=== PATIENT | male | born 1970 | race Two or more races ===

== ENCOUNTER 2018-07-16 22:22 | Inpatient (IN) | payer OTHER ==
[~2018-07-16] VITALS: Ht 165.1 cm; Wt 88.6 kg
[2018-07-16] MEDS ORDERED: OLANZAPINE 10 MG/VIAL IM STA (23:00)
[2018-07-16] MEDS ORDERED: ONDANSETRON HCL 4MG/2ML INJ IV STA (23:00)
[2018-07-16] MEDS ORDERED: SODIUM CHLORIDE 0.9% 1,000 ML IV ONE (23:00)
[2018-07-17] VITALS (38 sets, daily range): BP systolic 83–148; BP diastolic 48–92
[2018-07-17 00:17] LABS: BASOPHILS % 1.2 % (0.0-2.0); EOSINOPHILS % 0.3 % (0.0-5.0); HEMATOCRIT. 33.8 % (42.0-52.0); HEMOGLOBIN. 11.7 g/dL (14.0-18.0); LYMPHOCYTES % 8.2 % (20.0-50.0); MEAN CORPUSCULAR HEMOGLOBIN 35.4 pg (28.0-32.0); MEAN CORPUSCULAR VOLUME 102.3 fL (80.0-94.0); MEAN PLATELET VOLUME 7.3 fl (7.4-10.4); MONOCYTES % 13.7 % (2.0-8.0); NEUTROPHILS % 76.6 % (40.0-76.0); RED CELL DISTRIBUTION WIDTH 14.7 % (11.6-14.6)
[2018-07-17 00:26] LABS: CHLORIDE 103 mEq/L (98-107)
[2018-07-17] MEDS ORDERED: AZITHROMYCIN 500 MG in DEXT 5% WATER 250 ML IV ONE (00:30)
[2018-07-17] MEDS ORDERED: CEFTRIAXONE 1 G PREMIX 50 ML IV ONE (00:30)
[2018-07-17 00:32] LABS: PLATELET 47 x1000/uL (130-400)
[2018-07-17 00:56] LABS: BG BASE EXCESS 2.7 mmol/L (-2.0-2.0); BG CARBOXYHEMOGLOBIN 1.5 % (0.5-1.5); BG DEOXYHEMOGLOBIN 7.9 % (0.0-5.0); BG FRACTION INSPIRED OXYGEN 28; BG HCO3 ACT 23.5 mmol/L (22.0-26.0); BG METHEMOGLOBIN 0.4 % (0.0-1.5); BG OXYGEN SATURATION 91.9 % (92.0-98.5); BG OXYHEMOGLOBIN 90.2 % (94.0-97.0); BG PCO2 26.8 mmHg (35.0-45.0); BG PO2 62.4 mmHg (75.0-100.0); BG SAMPLE SITE RIGHT RADIAL; BG TOTAL HEMOGLOBIN 15.3 g/dL (12.0-18.0); BG VENT MODE NASAL CANNULA
[2018-07-17] MEDS ORDERED: IOHEXOL-300 100 ML BOTTLE ONE (03:16)
[2018-07-17 03:32] LABS: *BARBITURATES SCREEN URINE NEGATIVE (NEGATIVE); *BENZODIAZEPINES SCREEN URINE NEGATIVE (NEGATIVE)
[2018-07-17 03:33] LABS: *AMPHETAMINES SCREEN URINE NEGATIVE (NEGATIVE); *COCAINE SCREEN URINE NEGATIVE (NEGATIVE); CANNABINOID URINE SCREEN NEGATIVE (NEGATIVE); METHADONE URINE SCREEN NEGATIVE (NEGATIVE); OPIATES URINE SCREEN NEGATIVE (NEGATIVE); PHENCYCLIDINE URINE SCREEN NEGATIVE (NEGATIVE)
[2018-07-17] MEDS ORDERED: CLONIDINE 0.1MG TABLET PO PRN (05:45)
[2018-07-17] MEDS ORDERED: DOCUSATE SODIUM 100MG CAPSULE PO PRN (05:45)
[2018-07-17] MEDS ORDERED: GUAIFENESIN 200MG/10ML SUGAR FREE UDC PO PRN (05:45)
[2018-07-17] MEDS ORDERED: MAGNESIUM/ALUMINUM HYDROXIDE/SIMETHICONE 30ML UDC PO PRN (05:45)
[2018-07-17] MEDS ORDERED: DIPHENHYDRAMINE 50MG/ML VIAL IV PRN (05:45)
[2018-07-17] MEDS ORDERED: ONDANSETRON HCL 4MG/2ML INJ IV PRN (05:45)
[2018-07-17] MEDS ORDERED: NA PHOS,M-B/NA PHOS,DI-BA ENEMA 118ML PR PRN (05:45)
[2018-07-17] MEDS ORDERED: HYDROCODONE/ACETAMINOPHEN 5/325MG TABLET PO PRN (05:45)
[2018-07-17] MEDS ORDERED: LORAZEPAM 2MG/ML CPJ IV PRN (05:45)
[2018-07-17 06:54] LABS: CHLORIDE 102 mEq/L (98-107)
[2018-07-17 07:17] LABS: PLATELET ESTIMATE DECREASED
[2018-07-17 08:30] LABS: T4 FREE 1.86 ng/dL (0.76-1.46)
[2018-07-17] MEDS ORDERED: ASPIRIN 81MG EC TABLET PO SCH (10:00)
[2018-07-17] MEDS ORDERED: POTASSIUM CHLORIDE 20MEQ TABLET SR PO SCH (12:30)
[2018-07-17] MEDS ORDERED: MORPHINE SULFATE 4 MG/ML CPJ (NOT FOR IM USE) IV PRN (13:57)
[2018-07-17] MEDS: FOLIC ACID 1MG TABLET PO SCH (16:16)
[2018-07-17] MEDS: MULTIVITAMINS,THER W-MINERALS TABLET PO SCH (16:17)
[2018-07-17] MEDS: THIAMINE HCL 100MG TABLET PO SCH (16:17)
[2018-07-17] MEDS: ACETAMINOPHEN 325MG TABLET PO PRN (16:17)
[2018-07-17 16:36] LABS: INR 1.4; PARTIAL THROMBOPLASTIN TIME 31.5 sec (23.4-31.0); PROTHROMBIN TIME 14.2 sec (9.1-11.1)
[2018-07-17 16:46] LABS: CREATINE KINASE MB FRACTION 3.4 ng/mL (0.5-3.6)
[2018-07-17] MEDS ORDERED: PIPERACILLIN/TAZ 3.375G PREMIX 50 ML IV SCH (18:45)
[2018-07-17] MEDS: SODIUM CHLORIDE 0.45% 1,000 ML IV SCH (18:53)
[2018-07-17] MEDS: PIPERACILLIN/TAZ 3.375G PREMIX 50 ML IV SCH (20:51)
[2018-07-17] MEDS: CHLORDIAZEPOXIDE 5 MG CAPSULE PO SCH (21:51)
[2018-07-18] VITALS (93 sets, daily range): BP systolic 61–171; BP diastolic 36–95
[2018-07-18 00:10] LABS: CREATINE KINASE MB FRACTION 2.8 ng/mL (0.5-3.6)
[2018-07-18] MEDS ORDERED: LORAZEPAM 2MG/ML CPJ ONE ×2 (01:12→01:13)
[2018-07-18] MEDS ORDERED: LORAZEPAM 2MG/ML CPJ IV SCH (01:15)
[2018-07-18] MEDS: LORAZEPAM 2MG/ML CPJ IV SCH ×2 (01:35→01:49)
[2018-07-18] MEDS: PROPOFOL 10MG/ML 100ML 100 ML IV PRN ×7 (02:21→20:10)
[2018-07-18 02:43] LABS: BG BASE EXCESS -5.5 mmol/L (-2.0-2.0); BG CARBOXYHEMOGLOBIN 0.7 % (0.5-1.5); BG DEOXYHEMOGLOBIN 13.1 % (0.0-5.0); BG FRACTION INSPIRED OXYGEN 100; BG HCO3 ACT 22.3 mmol/L (22.0-26.0); BG METHEMOGLOBIN 0.4 % (0.0-1.5); BG OXYGEN SATURATION 86.8 % (92.0-98.5); BG OXYHEMOGLOBIN 85.8 % (94.0-97.0); BG PH 7.241 (7.350-7.450); BG PO2 67.1 mmHg (75.0-100.0); BG SAMPLE SITE RIGHT RADIAL; BG TIDAL VOLUME(mL) 450 mL; BG TOTAL HEMOGLOBIN 13.1 g/dL (12.0-18.0); BG VENT MODE VENT - A/C; BG VENT RATE 14 set
[2018-07-18] MEDS: LEVETIRACETAM 1,000 MG in SODIUM CHLORIDE 0.9% 100 ML IV SCH ×3 (02:58→22:32)
[2018-07-18] MEDS: PIPERACILLIN/TAZ 3.375G PREMIX 50 ML IV SCH ×4 (02:58→22:35)
[2018-07-18] MEDS ORDERED: SODIUM CHLORIDE 0.9% 500 ML IV ONE ×2 (03:15→04:15)
[2018-07-18] MEDS ORDERED: PHENYLEPHRINE 40 MG in DEXT 5% WATER 496 ML IV SCH (03:45)
[2018-07-18 07:10] LABS: CHLORIDE 105 mEq/L (98-107)
[2018-07-18 07:12] LABS: BASOPHILS % 0.9 % (0.0-2.0); HEMATOCRIT. 33.5 % (42.0-52.0); HEMOGLOBIN. 11.4 g/dL (14.0-18.0); LYMPHOCYTES % 10.8 % (20.0-50.0); MEAN CORPUSCULAR HEMOGLOBIN 35.5 pg (28.0-32.0); MEAN CORPUSCULAR VOLUME 103.9 fL (80.0-94.0); MEAN PLATELET VOLUME 8.5 fl (7.4-10.4); MONOCYTES % 11.1 % (2.0-8.0); NEUTROPHILS % 76.2 % (40.0-76.0); PLATELET 78 x1000/uL (130-400); RED BLOOD CELL COUNT 3.22 mill/uL (4.7-6.1); RED CELL DISTRIBUTION WIDTH 14.8 % (11.6-14.6)
[2018-07-18 07:19] LABS: LDL CHOLESTEROL 87 mg/dL (5-100)
[2018-07-18 07:21] LABS: CREATINE KINASE 572 IU/L (39-308); HDL CHOLESTEROL 13 mg/dL (40-59)
[2018-07-18 07:23] LABS: CREATINE KINASE MB FRACTION 4.8 ng/mL (0.5-3.6)
[2018-07-18] MEDS ORDERED: LIDOCAINE HCL 1% 20ML VIAL (Pyxis) INJ ONE (08:14)
[2018-07-18] MEDS: THIAMINE HCL 100MG TABLET PO SCH (08:20)
[2018-07-18] MEDS: MULTIVITAMINS,THER W-MINERALS TABLET PO SCH (08:20)
[2018-07-18] MEDS: FOLIC ACID 1MG TABLET PO SCH (08:20)
[2018-07-18] MEDS: CHLORDIAZEPOXIDE 5 MG CAPSULE PO SCH ×3 (08:20→22:34)
[2018-07-18 08:59] LABS: BG BASE EXCESS 0.3 mmol/L (-2.0-2.0); BG CARBOXYHEMOGLOBIN 0.6 % (0.5-1.5); BG FRACTION INSPIRED OXYGEN 100; BG HCO3 ACT 23.4 mmol/L (22.0-26.0); BG METHEMOGLOBIN 0.3 % (0.0-1.5); BG OXYHEMOGLOBIN 95.1 % (94.0-97.0); BG PCO2 32.8 mmHg (35.0-45.0); BG PH 7.471 (7.350-7.450); BG PO2 82.9 mmHg (75.0-100.0); BG SAMPLE SITE RIGHT BRACHIAL; BG TIDAL VOLUME(mL) 500 mL; BG TOTAL HEMOGLOBIN 12.1 g/dL (12.0-18.0); BG VENT MODE VENT - A/C; BG VENT RATE 18 set
[2018-07-18] MEDS: SODIUM CHLORIDE 0.45% 1,000 ML IV SCH ×2 (09:24→22:35)
[2018-07-18] MEDS ORDERED: EPINEPHRINE 0.1MG/ML (1:10,000) 10ML SYR ONE (11:38)
[2018-07-18] MEDS ORDERED: SODIUM BICARBONATE 7.5% 0.9 MEQ/ML 50ML SYR IV ONE (11:38)
[2018-07-18] MEDS ORDERED: CALCIUM CHLORIDE 1GM/10ML SYR IV ONE (11:38)
[2018-07-18] MEDS ORDERED: ETOMIDATE 2MG/ML 10ML VIAL IV ONE ×2 (14:25→14:36)
[2018-07-18] MEDS ORDERED: SUCCINYLCHOLINE CHLORIDE 200MG/10ML IV ONE ×2 (14:25→14:36)
[2018-07-18] MEDS: ACETAMINOPHEN 325MG TABLET PO PRN (16:38)
[2018-07-18] MEDS: PHENYLEPHRINE 40 MG in DEXT 5% WATER 500 ML IV PRN (22:33)
[2018-07-18] MEDS: LORAZEPAM 2MG/ML CPJ IV PRN (22:34)
[2018-07-19] VITALS (91 sets, daily range): BP systolic 68–117; BP diastolic 41–72
[2018-07-19] MEDS: PROPOFOL 10MG/ML 100ML 100 ML IV PRN (00:26)
[2018-07-19] MEDS: PIPERACILLIN/TAZ 3.375G PREMIX 50 ML IV SCH ×4 (02:57→21:01)
[2018-07-19] MEDS: PROPOFOL 10MG/ML 100ML 100 ML IV SCH ×6 (03:09→22:25)
[2018-07-19] MEDS: CHLORDIAZEPOXIDE 5 MG CAPSULE PO SCH ×3 (05:24→21:01)
[2018-07-19] MEDS: LORAZEPAM 2MG/ML CPJ IV PRN (06:02)
[2018-07-19 06:52] LABS: BASOPHILS % 2.3 % (0.0-2.0); HEMATOCRIT. 32.7 % (42.0-52.0); HEMOGLOBIN. 11.1 g/dL (14.0-18.0); MEAN CORPUSCULAR HEMOGLOBIN 35.1 pg (28.0-32.0); MEAN CORPUSCULAR VOLUME 103.8 fL (80.0-94.0); MEAN PLATELET VOLUME 8.4 fl (7.4-10.4); MONOCYTES % 12.4 % (2.0-8.0); NEUTROPHILS % 57.3 % (40.0-76.0); PLATELET 70 x1000/uL (130-400); RED BLOOD CELL COUNT 3.15 mill/uL (4.7-6.1)
[2018-07-19 07:00] LABS: CHLORIDE 106 mEq/L (98-107)
[2018-07-19 08:11] LABS: BG BASE EXCESS 0.7 mmol/L (-2.0-2.0); BG CARBOXYHEMOGLOBIN 0.3 % (0.5-1.5); BG DEOXYHEMOGLOBIN 8.1 % (0.0-5.0); BG FRACTION INSPIRED OXYGEN 100; BG HCO3 ACT 24.3 mmol/L (22.0-26.0); BG METHEMOGLOBIN 0.1 % (0.0-1.5); BG OXYGEN SATURATION 91.9 % (92.0-98.5); BG OXYHEMOGLOBIN 91.5 % (94.0-97.0); BG PCO2 35.4 mmHg (35.0-45.0); BG PH 7.455 (7.350-7.450); BG PRESSURE SUPPORT 15; BG SAMPLE SITE RIGHT BRACHIAL; BG TIDAL VOLUME(mL) 500 mL; BG TOTAL HEMOGLOBIN 11.4 g/dL (12.0-18.0); BG VENT MODE VENT - SIMV; BG VENT RATE 10 set
[2018-07-19] MEDS: IPRATROPIUM/ALBUTEROL 0.5-3(2.5)MG/3ML NEB INH PRN ×3 (08:12→15:20)
[2018-07-19] MEDS: THIAMINE HCL 100MG TABLET PO SCH (08:44)
[2018-07-19] MEDS: MULTIVITAMINS,THER W-MINERALS TABLET PO SCH (08:44)
[2018-07-19] MEDS: LEVETIRACETAM 1,000 MG in SODIUM CHLORIDE 0.9% 100 ML IV SCH ×2 (08:44→21:40)
[2018-07-19] MEDS: FOLIC ACID 1MG TABLET PO SCH (08:44)
[2018-07-19] MEDS ORDERED: POTASSIUM CHLORIDE INJ 40 MEQ in DEXT 5% WATER 250 ML IV SCH (09:00)
[2018-07-19] MEDS ORDERED: MAGNESIUM 2 G PREMIX 50 ML IV NR (09:00)
[2018-07-19] MEDS ORDERED: SODIUM BICARBONATE 4% (2.4MEQ) 5ML VIAL IV ONE (11:22)
[2018-07-19] MEDS ORDERED: LIDOCAINE HCL 1% 20ML VIAL (Pyxis) INJ ONE (11:22)
[2018-07-19] MEDS: SODIUM CHLORIDE 0.45% 1,000 ML IV SCH ×2 (14:20→22:26)
[2018-07-19] MEDS: LACTULOSE 20G/30ML UDC PO SCH (17:14)
[2018-07-19] MEDS: PHENYLEPHRINE 40 MG in DEXT 5% WATER 500 ML IV PRN (17:14)
[2018-07-19] MEDS ORDERED: POTASSIUM CHLORIDE INJ 40 MEQ in DEXT 5% WATER 250 ML IV NR (18:00)
[2018-07-20] VITALS (90 sets, daily range): BP systolic 73–123; BP diastolic 40–75
[2018-07-20] MEDS: PIPERACILLIN/TAZ 3.375G PREMIX 50 ML IV SCH ×4 (04:27→21:33)
[2018-07-20] MEDS: PROPOFOL 10MG/ML 100ML 100 ML IV PRN ×3 (04:29→17:55)
[2018-07-20] MEDS: CHLORDIAZEPOXIDE 5 MG CAPSULE PO SCH ×3 (05:59→21:33)
[2018-07-20 06:03] LABS: BASOPHILS % 1.4 % (0.0-2.0); EOSINOPHILS % 5.8 % (0.0-5.0); HEMATOCRIT. 33.1 % (42.0-52.0); HEMOGLOBIN. 11.1 g/dL (14.0-18.0); LYMPHOCYTES % 20.6 % (20.0-50.0); MEAN CORPUSCULAR HEMOGLOBIN 34.9 pg (28.0-32.0); MEAN CORPUSCULAR VOLUME 103.8 fL (80.0-94.0); MEAN PLATELET VOLUME 9.4 fl (7.4-10.4); MONOCYTES % 14.7 % (2.0-8.0); NEUTROPHILS % 57.5 % (40.0-76.0); PLATELET 62 x1000/uL (130-400); RED BLOOD CELL COUNT 3.19 mill/uL (4.7-6.1); RED CELL DISTRIBUTION WIDTH 15.2 % (11.6-14.6)
[2018-07-20 06:07] LABS: INR 1.4; PARTIAL THROMBOPLASTIN TIME 31.6 sec (23.4-31.0)
[2018-07-20] MEDS: PHENYLEPHRINE 40 MG in DEXT 5% WATER 500 ML IV PRN (06:09)
[2018-07-20 06:37] LABS: CHLORIDE 106 mEq/L (98-107); HEPATITIS B SURFACE ANTIGEN NEGATIVE
[2018-07-20 07:07] LABS: HEPATITIS A AB IGM NEGATIVE (NEGATIVE)
[2018-07-20] MEDS: LACTULOSE 20G/30ML UDC PO SCH ×2 (09:37→17:15)
[2018-07-20] MEDS: FOLIC ACID 1MG TABLET PO SCH (09:37)
[2018-07-20] MEDS: MULTIVITAMINS,THER W-MINERALS TABLET PO SCH (09:37)
[2018-07-20] MEDS: THIAMINE HCL 100MG TABLET PO SCH (09:37)
[2018-07-20] MEDS: LEVETIRACETAM 1,000 MG in SODIUM CHLORIDE 0.9% 100 ML IV SCH ×2 (09:37→21:33)
[2018-07-20 09:42] LABS: BG BASE EXCESS -1.1 mmol/L (-2.0-2.0); BG CARBOXYHEMOGLOBIN 0.2 % (0.5-1.5); BG DEOXYHEMOGLOBIN 2.1 % (0.0-5.0); BG FRACTION INSPIRED OXYGEN 60; BG HCO3 ACT 22.3 mmol/L (22.0-26.0); BG METHEMOGLOBIN 0.4 % (0.0-1.5); BG OXYGEN SATURATION 97.9 % (92.0-98.5); BG OXYHEMOGLOBIN 97.3 % (94.0-97.0); BG PCO2 32.8 mmHg (35.0-45.0); BG PO2 109.1 mmHg (75.0-100.0); BG PRESSURE SUPPORT 12; BG SAMPLE SITE RIGHT RADIAL; BG TIDAL VOLUME(mL) 500 mL; BG TOTAL HEMOGLOBIN 11.3 g/dL (12.0-18.0); BG VENT MODE VENT - SIMV; BG VENT RATE 10 set
[2018-07-20] MEDS ORDERED: PROPOFOL 10MG/ML 100ML 100 ML IV PRN (12:30)
[2018-07-20] MEDS: SODIUM CHLORIDE 0.45% 1,000 ML IV SCH (12:37)
[2018-07-20] MEDS: IPRATROPIUM/ALBUTEROL 0.5-3(2.5)MG/3ML NEB INH PRN ×2 (13:15→19:58)
[2018-07-20] MEDS: POTASSIUM CHLORIDE INJ 40 MEQ in DEXT 5% WATER 250 ML IV SCH (14:52)
[2018-07-20] MEDS: MIDODRINE HCL 5MG TABLET PO SCH (17:15)
[2018-07-21] VITALS (56 sets, daily range): BP systolic 84–131; BP diastolic 52–72
[2018-07-21] MEDS: IPRATROPIUM/ALBUTEROL 0.5-3(2.5)MG/3ML NEB INH PRN ×2 (00:23→03:56)
[2018-07-21] MEDS: PIPERACILLIN/TAZ 3.375G PREMIX 50 ML IV SCH ×4 (03:24→20:16)
[2018-07-21 05:30] LABS: HEMATOCRIT. 35.8 % (42.0-52.0); HEMOGLOBIN. 11.9 g/dL (14.0-18.0); MEAN CORPUSCULAR HEMOGLOBIN 34.9 pg (28.0-32.0); MEAN CORPUSCULAR VOLUME 105.5 fL (80.0-94.0); MEAN PLATELET VOLUME 8.9 fl (7.4-10.4); PLATELET 54 x1000/uL (130-400); RED CELL DISTRIBUTION WIDTH 15.1 % (11.6-14.6)
[2018-07-21 05:38] LABS: CHLORIDE 110 mEq/L (98-107)
[2018-07-21] MEDS: CHLORDIAZEPOXIDE 5 MG CAPSULE PO SCH ×3 (06:04→21:50)
[2018-07-21] MEDS: THIAMINE HCL 100MG TABLET PO SCH (08:17)
[2018-07-21] MEDS: MULTIVITAMINS,THER W-MINERALS TABLET PO SCH (08:17)
[2018-07-21] MEDS: POTASSIUM CHLORIDE INJ 40 MEQ in DEXT 5% WATER 250 ML IV SCH (08:17)
[2018-07-21] MEDS: FOLIC ACID 1MG TABLET PO SCH (08:17)
[2018-07-21] MEDS: MIDODRINE HCL 5MG TABLET PO SCH ×3 (08:17→16:07)
[2018-07-21] MEDS: LACTULOSE 20G/30ML UDC PO SCH ×2 (08:17→16:06)
[2018-07-21] MEDS: LEVETIRACETAM 1,000 MG in SODIUM CHLORIDE 0.9% 100 ML IV SCH ×2 (09:15→20:16)
[2018-07-21 09:30] LABS: PLATELET ESTIMATE DECREASED
[2018-07-21 10:08] LABS: BG BASE EXCESS 0.6 mmol/L (-2.0-2.0); BG CARBOXYHEMOGLOBIN 0.1 % (0.5-1.5); BG FRACTION INSPIRED OXYGEN 40; BG HCO3 ACT 24.7 mmol/L (22.0-26.0); BG METHEMOGLOBIN 0.4 % (0.0-1.5); BG OXYHEMOGLOBIN 94.5 % (94.0-97.0); BG PCO2 37.5 mmHg (35.0-45.0); BG PH 7.436 (7.350-7.450); BG PO2 77.4 mmHg (75.0-100.0); BG PRESSURE SUPPORT 8; BG SAMPLE SITE RIGHT BRACHIAL; BG TOTAL HEMOGLOBIN 11.5 g/dL (12.0-18.0); BG VENT MODE VENT - CPAP
[2018-07-21] MEDS: IPRATROPIUM/ALBUTEROL 0.5-3(2.5)MG/3ML NEB HHN SCH ×2 (14:26→20:42)
[2018-07-22] VITALS (19 sets, daily range): BP systolic 85–127; BP diastolic 52–71
[2018-07-22] MEDS: IPRATROPIUM/ALBUTEROL 0.5-3(2.5)MG/3ML NEB HHN SCH ×4 (02:01→21:19)
[2018-07-22] MEDS: PIPERACILLIN/TAZ 3.375G PREMIX 50 ML IV SCH ×3 (03:01→15:23)
[2018-07-22] MEDS: LORAZEPAM 2MG/ML CPJ IV PRN (03:58)
[2018-07-22] MEDS: CHLORDIAZEPOXIDE 5 MG CAPSULE PO SCH (05:24)
[2018-07-22] MEDS: THIAMINE HCL 100MG TABLET PO SCH (08:23)
[2018-07-22] MEDS: FOLIC ACID 1MG TABLET PO SCH (08:23)
[2018-07-22] MEDS: MIDODRINE HCL 5MG TABLET PO SCH ×3 (08:23→18:32)
[2018-07-22] MEDS: LACTULOSE 20G/30ML UDC PO SCH ×2 (08:23→18:29)
[2018-07-22] MEDS: POTASSIUM CHLORIDE INJ 40 MEQ in DEXT 5% WATER 250 ML IV SCH (08:23)
[2018-07-22] MEDS: MULTIVITAMINS,THER W-MINERALS TABLET PO SCH (08:23)
[2018-07-22] MEDS: LEVETIRACETAM 1,000 MG in SODIUM CHLORIDE 0.9% 100 ML IV SCH ×2 (09:32→21:29)
[2018-07-22 10:11] LABS: BG BASE EXCESS 0.7 mmol/L (-2.0-2.0); BG DEOXYHEMOGLOBIN 8.7 % (0.0-5.0); BG FRACTION INSPIRED OXYGEN 28; BG HCO3 ACT 24.4 mmol/L (22.0-26.0); BG METHEMOGLOBIN 0.1 % (0.0-1.5); BG OXYGEN SATURATION 91.2 % (92.0-98.5); BG OXYHEMOGLOBIN 90.2 % (94.0-97.0); BG PCO2 35.7 mmHg (35.0-45.0); BG PH 7.452 (7.350-7.450); BG PO2 59.2 mmHg (75.0-100.0); BG SAMPLE SITE RIGHT RADIAL; BG TOTAL HEMOGLOBIN 10.9 g/dL (12.0-18.0); BG VENT MODE NASAL CANNULA
[2018-07-22] MEDS: PANTOPRAZOLE SODIUM 40 MG/VIAL IV SCH (11:25)
[2018-07-22] MEDS: RISPERIDONE 0.5MG TABLET PO SCH (17:00)
[2018-07-22 21:25] LABS: CHLORIDE 117 mEq/L (98-107)
[2018-07-23] MEDS: IPRATROPIUM/ALBUTEROL 0.5-3(2.5)MG/3ML NEB HHN SCH ×3 (01:54→15:07)
[2018-07-23 03:56] VITALS: BP 106/60
[2018-07-23 07:30] VITALS: BP 96/90
[2018-07-23] MEDS ORDERED: SODIUM BICARBONATE 4% (2.4MEQ) 5ML VIAL IV ONE ×2 (08:28→10:35)
[2018-07-23] MEDS ORDERED: LIDOCAINE HCL 1% 20ML VIAL (Pyxis) INJ ONE ×2 (08:28→10:35)
[2018-07-23] MEDS: THIAMINE HCL 100MG TABLET PO SCH (09:00)
[2018-07-23] MEDS: MIDODRINE HCL 5MG TABLET PO SCH ×2 (09:00→14:42)
[2018-07-23] MEDS: LACTULOSE 20G/30ML UDC PO SCH (09:00)
[2018-07-23] MEDS: FOLIC ACID 1MG TABLET PO SCH (09:00)
[2018-07-23] MEDS: RISPERIDONE 0.5MG TABLET PO SCH (09:00)
[2018-07-23] MEDS: MULTIVITAMINS,THER W-MINERALS TABLET PO SCH (09:00)
[2018-07-23] MEDS: LEVETIRACETAM 1,000 MG in SODIUM CHLORIDE 0.9% 100 ML IV SCH (09:42)
[2018-07-23] MEDS: PANTOPRAZOLE SODIUM 40 MG/VIAL IV SCH (09:42)
[2018-07-23] MEDS: ACETAMINOPHEN 325MG TABLET PO PRN (10:10)
[2018-07-23 12:26] VITALS: BP 103/58
[2018-07-23 13:30] LABS: INR 1.4
[2018-07-23 16:00] VITALS: BP 100/48
[2018-07-23 17:12] VITALS: BP 100/48
== END 2018-07-23 18:19 | disposition short-term general hospital (02) | DRG 871 ==
LOC: ER 22:22 → 8WST 07-17 00:47 → UNDOADMIN 07-17 00:47 → CVICU 07-17 01:34 → EDBEDREQTM 07-17 01:42 → EDBEDREQ 07-17 01:42 → EDBEDREQSVC 07-17 01:42 → ENRESERV 07-17 08:09 → EDBEDREQ 07-17 10:37 → CANBEDREQ 07-17 10:58 → 6WST 07-22 16:12
PROVIDERS: ADMIT Internal Medicine; ATTEND Internal Medicine
PROC: 5A09357 Assistance with Respiratory Ventilation, Less than 24 Consecutive Hours, Continuous Positive Airway Pressure (ICD-10-PCS; 2018-07-17)
PROC: 02HV33Z Insertion of Infusion Device into Superior Vena Cava, Percutaneous Approach (ICD-10-PCS; 2018-07-18)
PROC: B5181ZA Fluoroscopy of Superior Vena Cava using Low Osmolar Contrast, Guidance (ICD-10-PCS; 2018-07-18)
PROC: 5A1945Z Respiratory Ventilation, 24-96 Consecutive Hours (ICD-10-PCS; 2018-07-18)
PROC: 0BH17EZ Insertion of Endotracheal Airway into Trachea, Via Natural or Artificial Opening (ICD-10-PCS; 2018-07-18)
PROC: 0W993ZZ Drainage of Right Pleural Cavity, Percutaneous Approach (ICD-10-PCS; principal; 2018-07-19)
PROC: 0W9G3ZZ Drainage of Peritoneal Cavity, Percutaneous Approach (ICD-10-PCS; 2018-07-23)
DX: A41.9 Sepsis, unspecified organism (principal); R65.21 Severe sepsis with septic shock; I21.4 Non-ST elevation (NSTEMI) myocardial infarction; G93.41 Metabolic encephalopathy; I50.23 Acute on chronic systolic (congestive) heart failure; J96.01 Acute respiratory failure with hypoxia; D61.818 Other pancytopenia; D68.9 Coagulation defect, unspecified; M62.82 Rhabdomyolysis; F10.239 Alcohol dependence with withdrawal, unspecified; E87.2 Acidosis; F05 Delirium due to known physiological condition; K76.6 Portal hypertension; J91.8 Pleural effusion in other conditions classified elsewhere; B91 Sequelae of poliomyelitis; D53.9 Nutritional anemia, unspecified; F41.9 Anxiety disorder, unspecified; D69.59 Other secondary thrombocytopenia; E11.9 Type 2 diabetes mellitus without complications; E78.1 Pure hyperglyceridemia; G47.00 Insomnia, unspecified; G89.29 Other chronic pain; K70.31 Alcoholic cirrhosis of liver with ascites; J45.909 Unspecified asthma, uncomplicated; M54.9 Dorsalgia, unspecified; L40.9 Psoriasis, unspecified; I25.10 Atherosclerotic heart disease of native coronary artery without angina pectoris; K76.0 Fatty (change of) liver, not elsewhere classified; I11.0 Hypertensive heart disease with heart failure; Z82.1 Family history of blindness and visual loss
CPT/HCPCS: 31500; 32555; 36415; 36569; 36600; 49083; 71045; 71260; 74176; 76700; 76705; 76937; 80048; 80061; 80076; 80305; 82140; 82375; 82550; 82553; 82805; 82962; 83036; 83605; 83735; 83880; 84132; 84134; 84145; 84439; 84443; 84478; 84484; 85049; 85379; 86705; 86709; 86803; 86850; 86900; 87070; 87340; 92610; 93005; 93306; 93970; 94002; 94003; 94640; 94660; 96365; 96366; 96367; 96372; 99291; A6261; C1725; C9113; J0330; J0456; J0696; J1200; J1953; J2060; J2270; J2370; J2405; J2543; J2704; J3475; J3480; J3490; J7030; J7040; J7050; J7060; J7620; Q9967; A4315